=== PATIENT | male | born 1960 | race Caucasian/White ===

== ENCOUNTER → 2017-01-18 | Outpatient (CLI) | payer OTHER ==
[~2017-01-18] MED LIST: ASPI81TA28 PO; GLUCTAB18 PO; MECL1TAB42 PO; OMEG10007 PO; SIMV20TA5 PO; VITACAP26 PO
--- NOTE | 2017-01-18 16:14 | DIAGNOSTIC IMAGING REPORT ---
LEFT FOOT MIN 3 VIEWS ROUTINE CLINICAL HISTORY: ACUTE FOOT PAIN pain COMPARISON: None. DISCUSSION: The bones and joint spaces appear intact. There is no evidence of fracture, dislocation or bony disease. There is no evidence for soft tissue swelling. Very small heel spur. IMPRESSION: Very small heel spur. Otherwise negative study. The above report was generated using voice recognition software. It may contain grammatical, syntax or spelling errors. Electronically signed by: Francisco Singh M.D. 01/18/2017 4:13 PM Dictated Date/Time: 01/18/2017 4:12 PM
== END | disposition home or self-care (01) ==
LOC: C.RAD1850 15:36
PROVIDERS: ATTEND Physician Assistant
DX: M79.672 Pain in left foot (principal)

== ENCOUNTER 2020-01-23 13:23 | Observation (INO) ==
[2020-01-23] MEDS ORDERED: SODIUM CHLORIDE 0.9% 500 ML IV ONE (14:04)
--- NOTE | 2020-01-23 14:15 | Emergency Department Note ---
Impression & Plan Cellulitis of right hand, Failure of outpatient treatment ED Provider Note CHIEF COMPLAINT: Right hand/wrist infection HISTORY OF PRESENTING ILLNESS: This is a 59-year-old male who presents to the emergency department by private vehicle with complaint of right hand and wrist infection that has been ongoing for the past 9 days. Patient states he saw his PCP a week ago and was started on Keflex and Bactrim and was also given a steroid. He states the swelling initially got much better, but yesterday he started getting more swelling and redness and pain especially over the wrist area. He states the pain started to increase today as well, he notes it as an ache and throb and rates the pain 5/10. He has taken Tylenol for the pain with some relief. He spoke with his PCP today who told him to come in for IV antibiotics. He denies any fevers or chills. He denies any numbness/tingling or weakness in the hand or fingers. He notes that he had some scratches on his hand from work which is what he believes started the infection. He is not diabetic. He denies any history of previous infections or abscesses. He is right-hand dominant. He denies taking any blood thinner medications. He denies any other symptoms of chest pain, shortness of breath, dizziness or syncope, nausea, vomiting, loss of appetite, or unusual rash. REVIEW OF SYSTEMS: A complete 10 point review of systems was reviewed with the patient with pertinent positives and negatives as per history of present i llness. All else were negative. PAST MEDICAL HISTORY: Hyperlipidemia, obstructive sleep apnea, obesity SOCIAL HISTORY: Lives at home, he denies tobacco use ALLERGIES: No known allergies PHYSICAL EXAM: CONSTITUTIONAL: Pleasant and cooperative. Nontoxic-appearing and in no acute distress. Well appearing and well nourished. HEENT: Normocephalic, atraumatic. NECK: Supple, full active range of motion without discomfort. RESPIRATORY: Clear to auscultation bilaterally with no wheezing, crackles, rhonchi or stridor. Equal expansion bilaterally. CARDIOVASCULAR: Regular rate and rhythm with no murmurs, rubs or gallops. Normal peripheral perfusion. No edema. GASTROINTESTINAL: Soft, nontender, nondistended, obese abdomen. Bowel sounds present in all quadrants. MUSCULOSKELETAL: There is moderate swelling over the dorsal aspect of the right hand and wrist, erythematous and warm to the touch. There is an area of raised swelling over top of the dorsal wrist which feels fluctuant. Full range of motion of the fingers and wrist, no significant pain with flexion or extension of the fingers or wrist. No swelling noted in the fingers. Full range of motion of the elbow and shoulder. INTEGUMENTARY: No rash or other significant dermatologic conditions noted. NEUROLOGIC: Alert and oriented X 4 with normal affect. Normal strength and sensation in all facilities. Normal speech. Normal gait observed. ED COURSE AND MEDICAL DECISION MAKING: CC: Patient presenting with complaint of right hand infection DIFFERENTIAL DIAGNOSIS: Includes, but not limited to cellulitis, abscess, tenosynovitis, osteomyelitis, contusion, hematoma, failed outpatient treatment, among others. INTERPRETATION OF LABS: No leukocytosis, no anemia, normal platelets, no significant electrolyte abnormalities, mildly elevated BUN with normal creatinine, normal liver enzymes. IMAGING: XR hand RT min 3V routine, XR wrist RT min 3V routine CLINICAL HISTORY: Right hand and wrist swelling. Cellulitis. COMPARISON STUDY: None. FINDINGS: Dorsal soft tissue swelling within the hand and wrist. No subcutaneous gas or radiopaque foreign bodies identified. No underlying bony erosions to suggest osteomyelitis. No fracture or dislocation. IMPRESSION: Dorsal soft tissue swelling within the right hand and wrist. No underlying bony abnormality. ----- RIGHT HAND AND WRIST ULTRASOUND CLINICAL HISTORY: right hand/wrist infection, eval abscess COMPARISON STUDY: Right hand and wrist radiographs performed earlier today. TECHNIQUE: Sonography of the right hand and wrist was performed. FINDINGS: Sonography of the dorsal aspect of the right hand and wrist demonstrated soft tissue swelling. No fluid collection is identified to suggest an abscess. Visualized vessels were patent. IMPRESSION: 1. No abscess identified within the right hand or wrist by sonography. 2. Soft tissue swelling of the dorsal right wrist which may reflect cellulitis or edema. MEDICATION RECONCILIATION: I attest that I have personally reviewed the patient's current medication list. INITIAL VITAL SIGNS REVIEW: I reviewed the patient's initial vital signs and interpret them as follows: T: Afebrile; BP: Normotensive; HR: Within normal limits; RR: Within normal limits; Pulse Ox: Within normal limits on room air. Blood pressure screening: The patient was found to have normal blood pressure on screening and does not require follow-up for repeat blood pressure check. MDM SUMMARY: Patient was evaluated at bedside, history and physical exam performed. Patient is alert and oriented, no acute distress, resting calmly in stretcher. He is afebrile and nontoxic-appearing. Note is made of redness, swelling, and w armth over the dorsum of the right hand and wrist which appears consistent with cellulitis. Patient has been taking Keflex and Bactrim for several days, initially seemed to be improving, but now the infection seems to be getting worse again. Orders were placed at bedside for labs, IV fluid bolus for hydration as precaution, x-rays of the wrist and hand and ultrasound of the extremity to evaluate for infection. The patient was offered something for pain, he declines at this time. Patient discussed with Dr. Ma, who agrees with my assessment, plan, and disposition. Labs and imaging reviewed as above, labs are fairly unremarkable, no leukocytosis. X-ray imaging does not show any underlying bony abnormality or findings suggestive of osteomyelitis. Ultrasound shows soft tissue swelling without any evidence of fluid collection/abscess. Given the progressive worsening symptoms while the patient has been on antibiotics, I feel that he has failed outpatient therapy. I did feel the patie nt warranted admission for IV antibiotics. I discussed with [facility] ED pharmacist, she recommended IV ceftriaxone and daptomycin, which were ordered. I spoke on the phone with Dr. Noonan, hospitalist, who agrees to evaluate the patient for the admission. Patient reassessed multiple times throughout ED stay, he has remained hemodynamically stable and afebrile, and his pain is adequately controlled. Patient was updated on all results and plan for admission,, he was agreeable to this plan. All questions were answered to the best of my ability at this time. The patient was stable at time of admission. The chart was completed utilizing [employer] Speech voice recognition software. Grammatical errors, random word insertions, pronoun errors, and incomplete sentences are an occasional consequence of this system due to software limitations, ambient noise, and hardware issues. Any formal questions or concerns about the content, text, or information contained within the body of this dictation should be directly addressed to the nurse practitioner for clarification. Past Med/Surg History Medical History (Updated 01/23/20 @ 22:28 by DARLENE Irvin) Obesity AKBAR (obstructive sleep apnea) Pre-diabetes Surgical History History of cardiac catheterization Hx of knee surgery Family History Father Heart disease Mother Alzheimer disease Parkinsons disease Brother Throat cancer Sister COPD (chronic obstructive pulmonary disease) Denies family history of Prostate cancer Myocardial infarction Breast cancer Colorectal cancer Social History Smoking Status: Never smoker Do You Dip or Chew Tobacco: No; Hx Alcohol Use: Yes Alcohol type: beer Alcohol Intake Frequency Comment: Six beers per week Hx Substance Use: No Preferred Language: Bruneian Communication Ability: Effective Risk Management Director Required: No Beliefs That Will Affect Care: None marital status: Current Living Situation: Spouse current occupational status: employed Other Information That Helps Us Care for You: No Feels Safe at Home: Yes Safety Concerns: Feels Safe At This Time caffeine: Yes Dental Care, Regularly: Yes Physical Activity Frequency: Does not Exercise Seatbelt Use: always Allergies Allergies Allergy/AdvReac Type Severity Reaction Status Date / Time atorvastatin [From Lipitor] AdvReac Unknown Verified 01/23/20 16:07 Home Meds Home Medications Medication Instructions Recorded Confirmed glucosamine [id number] 2 tab PO DAILY 05/30/19 01/23/20 sobeida 1,500 mg-400 unit-100 mg tablet omega 4-itb-doy-fish oil 300 1 cap PO DAILY 05/30/19 01/23/20 mg-1,000 mg capsule ibuprofen 600 mg PO Q6H PRN 01/23/20 01/23/20 Previous Rx's Medication Instructions Recorded CPAP Machine #1 ea 09/20/19 cephalexin 500 mg capsule 500 mg PO BID #14 cap 01/17/20 prednisone 50 mg tablet 50 mg PO DAILY #5 tab 01/17/20 sulfamethoxazole 800 1 tab PO BID 7 Days #14 tab 01/17/20 mg-trimethoprim 160 mg tablet Results & Data (ED) Vital Signs Vital Signs - 24 hr 01/23/20 13:28 01/23/20 14:36 Temperature 36.8 C Temperature Source Oral Pulse Rate 83 Pulse Rate [Apical] 74 Respiratory Rate 20 18 Respiratory Effort / Characteristics Non-Labored Spontaneous Respiratory Depth Normal Blood Pressure 120/66 Blood Pressure [Left Arm] 124/55 L Blood Pressure Mean 84 Blood Pressure Mean [Left Arm] 78 Pulse Oximetry 95 97 Oxygen Delivery Method Room Air Room Air Sepsis Recent Fever Within 48 Hours No Sepsis New/Unexplained Change in Mental Status N/A Sepsis Action Taken by Nursing No Action Required Laboratory Data Result diagrams: 01/23/20 14:31 01/23/20 14:31 Lab Results 01/23/20 01/23/20 Range/Units 14:31 14:31 WBC 7.67 (4.8-10.8) K/uL RBC 5.05 (4.7-6.1) M/uL Hgb 14.5 (14.0-18.0) g/dL Hct 43.3 (42-52) % MCV 85.7 (80-100) fL MCH 28.7 (25-34) pg MCHC 33.5 (32-36) g/dL RDW Std Deviation 44.1 (36.4-46.3) fL RDW Coeff of Rosaura 14.1 (11.5-14.5) % Plt Count 257 (130-400) K/uL MPV 9.1 (7.4-10.4) fL Immature Gran % (Auto) 0.4 % Neut % (Auto) 61.5 % Lymph % (Auto) 26.9 % Upton % (Auto) 8.0 % Eos % (Auto) 2.5 % Baso % (Auto) 0.7 % Neut # (Auto) 4.73 (1.4-6.5) K/uL Lymph # (Auto) 2.06 (1.2-3.4) K/uL Upton # (Auto) 0.61 H (0.11-0.59) K/uL Eos # (Auto) 0.19 (0-0.5) K/uL Baso # (Auto) 0.05 (0-0.2) K/uL Immature Gran # (Auto) 0.03 H (0.00-0.02) K/uL Sodium 137 (136-145) mmol/L Potassium 4.1 (3.5-5.1) mmol/L Chloride 106 (98-107) mmol/L Carbon Dioxide 24 (21-32) mmol/L Anion Gap 7.0 (3-11) BUN 23 H (7-18) mg/dl Creatinine 1.31 (0.6-1.4) mg/dl Est Cr Clr Drug Dosing Not Reportable Est GFR ( Amer) 68.1 Est GFR (Non-Af Amer) 58.8 BUN/Creatinine Ratio 17.3 (10-20) Glucose 111 H (70-99) mg/dl Calcium 8.8 (8.5-10.1) mg/dl Total Bilirubin 0.3 (0.2-1) mg/dl AST 21 (15-37) U/L ALT 37 (12-78) U/L Alkaline Phosphatase 84 (45-117) U/L Total Protein 7.0 (6.4-8.2) gm/dl Albumin 3.1 L (3.4-5.0) gm/dl Globulin 3.9 (2.5-4.0) gm/dl Albumin/Globulin Ratio 0.8 L (0.9-2) Administered Medications Discontinued Medications Sodium Chloride (Nss) 500 mls @ 999 mls/hr IV .Q31M ONE Stop: 01/23/20 14:34 Last Infusion: 01/23/20 15:59 Dose: 0 mls/hr Documented by: [id number] Admin: 01/23/20 14:33 Dose: 999 mls/hr Documented by: [id number] Daptomycin 425 mg/ Syringe 8.5 mls @ 4.25 mls/min IV NOW STA; Protocol Stop: 01/23/20 15:37 Last Admin: 01/23/20 15:59 Dose: 4.25 mls/min Documented by: [id number] Ceftriaxone Sodium (Rocephin) 2,000 mg in 70 mls @ 140 mls/hr IV NOW STA Stop: 01/23/20 16:04 Last Infusion: 01/23/20 21:03 Dose: 0 mls/hr Documented by: [id number] Admin: 01/23/20 15:59 Dose: 140 mls/hr Documented by: [id number] Discharge Plan Visit Data Chief Complaint: Infection Stated Complaint: CELLULITIS IN RT HAND,NOT GETTING BETTER WITH MEDS ED Provider: Adalberto Ma ED Midlevel Provider: Rachel Sánchez Discharge Problem: Cellulitis of right hand, Failure of outpatient treatment Patient Disposition: Admitted As Inpatient Condition: Good Discharge Instructions Interventions: ED Discharge Assessment Last Done: 01/23/20 17:50
[2020-01-23 14:40] LABS: Basophils # (auto) 0.05 K/uL (0-0.2); Basophils % (auto) 0.7 %; Eosinophils # (auto) 0.19 K/uL (0-0.5); Eosinophils % (auto) 2.5 %; Hematocrit (blood only) 43.3 % (42-52); Hemoglobin 14.5 g/dL (14.0-18.0); Immature Granulocytes # (auto) 0.03 K/uL (0.00-0.02); Immature Granulocytes % (auto) 0.4 %; Lymphocytes # (auto) 2.06 K/uL (1.2-3.4); Lymphocytes % (auto) 26.9 %; Mean Corpuscular Hemoglobin 28.7 pg (25-34); Mean Corpuscular Hgb Conc 33.5 g/dL (32-36); Mean Corpuscular Volume 85.7 fL (80-100); Mean Platelet Volume 9.1 fL (7.4-10.4); Monocytes # (auto) 0.61 K/uL (0.11-0.59); Neutrophils # (auto) 4.73 K/uL (1.4-6.5); Neutrophils % (auto) 61.5 %; Platelet Count 257 K/uL (130-400); RDW Coefficient of Variation 14.1 % (11.5-14.5); RDW Standard Deviation 44.1 fL (36.4-46.3); Red Blood Count 5.05 M/uL (4.7-6.1); White Blood Count 7.67 K/uL (4.8-10.8)
--- NOTE | 2020-01-23 14:55 | XRay Report ---
XR hand RT min 3V routine, XR wrist RT min 3V routine CLINICAL HISTORY: Right hand and wrist swelling. Cellulitis. COMPARISON STUDY: None. FINDINGS: Dorsal soft tissue swelling within the hand and wrist. No subcutaneous gas or radiopaque fo reign bodies identified. No underlying bony erosions to suggest osteomyelitis. No fracture or disloca tion. IMPRESSION: Dorsal soft tissue swelling within the right hand and wrist. No underlying bony abnormal ity. ACT 112: Negative or not required by law. Electronically signed by: Dylan Arellano M.D. 01/23/2020 2:54 PM
[2020-01-23 15:03] LABS: Alanine Aminotransferase 37 U/L (12-78); Albumin Level 3.1 gm/dl (3.4-5.0); Aspartate Aminotransferase 21 U/L (15-37); BUN Creatinine Ratio 17.3 (10-20); Blood Urea Nitrogen 23 mg/dl (7-18); Calcium 8.8 mg/dl (8.5-10.1); Carbon Dioxide 24 mmol/L (21-32); Chloride 106 mmol/L (98-107); Est GFR (African American) 68.1; Est GFR (Non-African American) 58.8; Glucose 111 mg/dl (70-99); Potassium 4.1 mmol/L (3.5-5.1); Sodium 137 mmol/L (136-145)
[2020-01-23 15:06] LABS: Albumin Globulin Ratio 0.8 (0.9-2); Alkaline Phosphatase 84 U/L (45-117); Bilirubin,Total 0.3 mg/dl (0.2-1); Globulin 3.9 gm/dl (2.5-4.0)
--- NOTE | 2020-01-23 15:18 | Ultrasound Report ---
RIGHT HAND AND WRIST ULTRASOUND CLINICAL HISTORY: right hand/wrist infection, eval abscess COMPARISON STUDY: Right hand and wrist radiographs performed earlier today. TECHNIQUE: Sonography of the right hand and wrist was performed. FINDINGS: Sonography of the dorsal aspect of the right hand and wrist demonstrated soft tissue swelli ng. No fluid collection is identified to suggest an abscess. Visualized vessels were patent. IMPRESSION: 1. No abscess identified within the right hand or wrist by sonography. 2. Soft tissue swelling of the dorsal right wrist which may reflect cellulitis or edema. ACT 112: Negative or not required by law. Electronically signed by: Adria Sandoval M.D. 01/23/2020 3:16 PM
[2020-01-23] MEDS ORDERED: cefTRIAXone SODIUM 2,000 MG/70 ML BAG IV STA (15:35)
[2020-01-23] MEDS ORDERED: DAPTOmycin 425 MG in SYRINGE 0 ML IV STA (15:36)
[2020-01-23] MEDS ORDERED: ONDANSETRON INJ 2 MG/ML 2 ML VIAL IV PRN (16:01)
[2020-01-23] MEDS ORDERED: POLYETHYLENE (MIRALAX) 17 GM PACK PO PRN (16:01)
[2020-01-23] MEDS ORDERED: DAPTOMYCIN CONSULT ACTIVE PRN (16:55)
--- NOTE | 2020-01-23 22:36 | History & Physical Report ---
Date of Service January 23, 2020 Assessment & Plan (1) Cellulitis of right hand: will admit to med/surg Place on IV antibiotics. will monitor likely for 2 days. Unsure if cultures were obtained prior to IV antibiotics. (2) Back pain: This is chronic, will monitor (3) Obesity: BMI is elevated at 43, recommend life style modifications (4) AKBAR (obstructive sleep apnea): ORDERED CPAP (5) Hyperlipidemia: Does not appear to be ion stain, may require FLP at discharge dvt: patient may ambulate. Admission and Anticipated Discharge Date Admission Date: January 23, 2020 History of Present Illness Chief Complaint: right hand swelling Primary Care Provider: Lizzeth Conklin MD This is a pleasant 59 yo male who comes in to the ED with Right hand swelling. He was treated with cellulitis in the past week with kephlex and bactrim. His swelling improved but returned once his antibiotics stopped. Patient also received prednisone for his back pain during time of treatment for cellulitis His doctor told him to go to the ER for IV antibiotics Allergies Allergy/AdvReac Type Severity Reaction Status Date / Time atorvastatin [From Lipitor] AdvReac Unknown Verified 01/23/20 16:07 Home Medications Home Medications Medication Instructions Recorded Confirmed Type glucosamine [id number] 2 tab PO DAILY 05/30/19 01/23/20 History sobeida 1,500 mg-400 unit-100 mg tablet omega 9-kjw-owj-fish oil 300 1 cap PO DAILY 05/30/19 01/23/20 History mg-1,000 mg capsule CPAP Machine #1 ea 09/20/19 01/17/20 Rx cephalexin 500 mg capsule 500 mg PO BID #14 cap 01/17/20 01/23/20 Rx prednisone 50 mg tablet 50 mg PO DAILY #5 tab 01/17/20 01/23/20 Rx sulfamethoxazole 800 1 tab PO BID 7 Days #14 tab 01/17/20 01/23/20 Rx mg-trimethoprim 160 mg tablet ibuprofen 600 mg PO Q6H PRN 01/23/20 01/23/20 History Past Med/Surg History Medical History Obesity AKBAR (obstructive sleep apnea) Pre-diabetes Surgical History History of cardiac catheterization Hx of knee surgery Family History Father Heart disease Mother Alzheimer disease Parkinsons disease Brother Throat cancer Sister COPD (chronic obstructive pulmonary disease) Denies family history of Prostate cancer Myocardial infarction Breast cancer Colorectal cancer Social History Smoking Status: Never smoker Do You Dip or Chew Tobacco: No; Hx Alcohol Use: Yes Alcohol type: beer Alcohol Intake Frequency Comment: Six beers per week Hx Substance Use: No Preferred Language: Citizen Of [place] Communication Ability: Effective Salvage Machine Operator Required: No Beliefs That Will Affect Care: None marital status: Current Living Situation: Spouse current occupational status: employed Other Information That Helps Us Care for You: No Feels Safe at Home: Yes Safety Concerns: Feels Safe At This Time caffeine: Yes Dental Care, Regularly: Yes Physical Activity Frequency: Does not Exercise Seatbelt Use: always Review of Systems Constitutional: no sweats and no malaise Eyes: no diplopia Ear, Nose, Mouth, Throat: no ear pain and no ear trauma Respiratory: no change in sputum Cardiovascular: no chest pain with activity and no dyspnea at rest Gastrointestinal: no abdominal pain Genitourinary: no urinary frequency and no post-void dribbling Musculoskeletal: no radicular pain and no deformity Integumentary: no acne and no skin ulcer Neurologic: no falls Psychiatric: no behavioral changes Endocrine: no fatigue Hematologic / Lymphatic: no coagulopathy Physical Exam Constitutional: WD/WN, vitals as above Eyes: PERRL, conjunctivae normal, anicteric sclerae ENMT: external ear and nose normal, oropharynx normal Neck: trachea midline, no thyromegaly Respiratory: normal respiratory effort, lungs clear to auscultation Cardiovascular: RRR, no murmur, no edema Musculoskeletal: right hand swelling in the dorsum of the hand near the wrist, mild erythema noted, TTP Skin: Trauma: no evidence of skin trauma Neurologic: patellar DTR's 2+ bilat, sensation intact Psychiatric: A+Ox3, euthymic affect Genitourinary: no testicular masses, no penis abnormality Results & Data Results & Data ([facility]) Vital Signs (Past 12 Hours) Vital Signs Temp Pulse Pulse Resp BP BP Pulse Ox 01/23/20 18:15 36.6 C 67 18 133/83 97 01/23/20 17:50 78 16 130/85 95 01/23/20 16:00 64 16 134/72 98 01/23/20 14:36 74 18 124/55 L 97 01/23/20 13:28 36.8 C 83 20 120/66 95 PG Care Time/CCT Total # of Minutes Spent Total Time Spent with Patient: Total time spent is greater than 50% in coordination of care (as documented) at patient's floor/unit and/or counseling patient: Coding Level of Care Code 35988 Initial Inpt Care Lvl 3 Diagnoses Cellulitis of right hand L03.113 Back pain M54.9 Obesity E66.9 AKBAR (obstructive sleep apnea) G47.33 Hyperlipidemia E78.5
[2020-01-24 08:55] LABS: Hematocrit (blood only) 44.1 % (42-52); Hemoglobin 14.9 g/dL (14.0-18.0); Mean Corpuscular Hemoglobin 29.1 pg (25-34); Mean Corpuscular Hgb Conc 33.8 g/dL (32-36); Mean Corpuscular Volume 86.1 fL (80-100); Mean Platelet Volume 9.2 fL (7.4-10.4); Platelet Count 261 K/uL (130-400); RDW Coefficient of Variation 14.1 % (11.5-14.5); RDW Standard Deviation 44.5 fL (36.4-46.3); Red Blood Count 5.12 M/uL (4.7-6.1); White Blood Count 9.48 K/uL (4.8-10.8)
[2020-01-24] MEDS ORDERED: OMEGA-3 (PURIFIED FISH OIL) 1 GM CAP PO SCH (09:00)
[2020-01-24 09:32] LABS: BUN Creatinine Ratio 20.7 (10-20); Calcium 8.8 mg/dl (8.5-10.1); Creatinine Clr Calc Pharmacy 142.9 ml/min; Est GFR (Non-African American) 96.6; Potassium 4.2 mmol/L (3.5-5.1)
--- NOTE | 2020-01-24 10:00 | Hospitalist Progress Note ---
Date of Service January 24, 2020 Assessment & Plan (1) Cellulitis of right hand: will admit to med/surg Place on IV antibiotics. will monitor likely for 2 days. Unsure if cultures were obtained prior to IV antibiotics. (2) Back pain: This is chronic, will monitor (3) Obesity: BMI is elevated at 43, recommend life style modifications (4) KABAR (obstructive sleep apnea): ORDERED CPAP (5) Hyperlipidemia: Does not appear to be ion stain, may require FLP at discharge dvt: patient may ambulate. Admission and Anticipated Discharge Date Admission Date: January 23, 2020 Results & Data Results & Data ([facility]) Vital Signs (Past 12 Hours) Vital Signs Temp Pulse Resp BP Pulse Ox 01/24/20 07:57 36.6 C 59 L 16 120/71 96 01/23/20 23:21 36.6 C 65 16 104/64 96 Laboratory Results 01/24/20 01/24/20 01/23/20 Range/Units 08:20 08:20 14:31 WBC 9.48 (4.8-10.8) K/uL RBC 5.12 (4.7-6.1) M/uL Hgb 14.9 (14.0-18.0) g/dL Hct 44.1 (42-52) % MCV 86.1 (80-100) fL MCH 29.1 (25-34) pg MCHC 33.8 (32-36) g/dL RDW Std Deviation 44.5 (36.4-46.3) fL RDW Coeff of Rosaura 14.1 (11.5-14.5) % Plt Count 261 (130-400) K/uL MPV 9.2 (7.4-10.4) fL Immature Gran % (Auto) % Neut % (Auto) % Lymph % (Auto) % Barnes % (Auto) % Eos % (Auto) % Baso % (Auto) % Neut # (Auto) (1.4-6.5) K/uL Lymph # (Auto) (1.2-3.4) K/uL Barnes # (Auto) (0.11-0.59) K/uL Eos # (Auto) (0-0.5) K/uL Baso # (Auto) (0-0.2) K/uL Immature Gran # (Auto) (0.00-0.02) K/uL Sodium 138 137 (136-145) mmol/L Potassium 4.2 4.1 (3.5-5.1) mmol/L Chloride 108 H 106 (98-107) mmol/L Carbon Dioxide 23 24 (21-32) mmol/L Anion Gap 7.0 7.0 (3-11) BUN 17 23 H (7-18) mg/dl Creatinine 0.81 D 1.31 (0.6-1.4) mg/dl Est Cr Clr Drug Dosing 142.9 Not Reportable Est GFR ( Amer) 112.0 68.1 Est GFR (Non-Af Amer) 96.6 58.8 BUN/Creatinine Ratio 20.7 H 17.3 (10-20) Glucose 95 111 H (70-99) mg/dl Calcium 8.8 8.8 (8.5-10.1) mg/dl Total Bilirubin 0.3 (0.2-1) mg/dl AST 21 (15-37) U/L ALT 37 (12-78) U/L Alkaline Phosphatase 84 (45-117) U/L Total Protein 7.0 (6.4-8.2) gm/dl Albumin 3.1 L (3.4-5.0) gm/dl Globulin 3.9 (2.5-4.0) gm/dl Albumin/Globulin Ratio 0.8 L (0.9-2) /02/02 Range/Units 14:31 WBC 7.67 (4.8-10.8) K/uL RBC 5.05 (4.7-6.1) M/uL Hgb 14.5 (14.0-18.0) g/dL Hct 43.3 (42-52) % MCV 85.7 (80-100) fL MCH 28.7 (25-34) pg MCHC 33.5 (32-36) g/dL RDW Std Deviation 44.1 (36.4-46.3) fL RDW Coeff of Rosaura 14.1 (11.5-14.5) % Plt Count 257 (130-400) K/uL MPV 9.1 (7.4-10.4) fL Immature Gran % (Auto) 0.4 % Neut % (Auto) 61.5 % Lymph % (Auto) 26.9 % Barnes % (Auto) 8.0 % Eos % (Auto) 2.5 % Baso % (Auto) 0.7 % Neut # (Auto) 4.73 (1.4-6.5) K/uL Lymph # (Auto) 2.06 (1.2-3.4) K/uL Barnes # (Auto) 0.61 H (0.11-0.59) K/uL Eos # (Auto) 0.19 (0-0.5) K/uL Baso # (Auto) 0.05 (0-0.2) K/uL Immature Gran # (Auto) 0.03 H (0.00-0.02) K/uL Sodium (136-145) mmol/L Potassium (3.5-5.1) mmol/L Chloride (98-107) mmol/L Carbon Dioxide (21-32) mmol/L Anion Gap (3-11) BUN (7-18) mg/dl Creatinine (0.6-1.4) mg/dl Est Cr Clr Drug Dosing Est GFR ( Amer) Est GFR (Non-Af Amer) BUN/Creatinine Ratio (10-20) Glucose (70-99) mg/dl Calcium (8.5-10.1) mg/dl Total Bilirubin (0.2-1) mg/dl AST (15-37) U/L ALT (12-78) U/L Alkaline Phosphatase (45-117) U/L Total Protein (6.4-8.2) gm/dl Albumin (3.4-5.0) gm/dl Globulin (2.5-4.0) gm/dl Albumin/Globulin Ratio (0.9-2) PG Care Time/CCT Total # of Minutes Spent Total Time Spent with Patient: Total time spent is greater than 50% in coordination of care (as documented) at patient's floor/unit and/or counseling patient: Coding Diagnoses Cellulitis of right hand L03.113 Back pain M54.9 Obesity E66.9 AKBAR (obstructive sleep apnea) G47.33 Hyperlipidemia E78.5
--- NOTE | 2020-01-24 13:12 | Discharge Summary ---
Date of Service January 24, 2020 Admission HPI Per Admitting Provider This is a pleasant 59 yo male who comes in to the ED with Right hand swelling. He was treated with cellulitis in the past week with kephlex and bactrim. His swelling improved but returned once his antibiotics stopped. Patient also received prednisone for his back pain during time of treatment for cellulitis His doctor told him to go to the ER for IV antibiotics Admission Exam Per Admitting Provider Constitutional: WD/WN, vitals as above Eyes: PERRL, conjunctivae normal, anicteric sclerae ENMT: external ear and nose normal, oropharynx normal Neck: trachea midline, no thyromegaly Respiratory: normal respiratory effort, lungs clear to auscultation Cardiovascular: RRR, no murmur, no edema Musculoskeletal: right hand swelling in the dorsum of the hand near the wrist, mild erythema noted, TTP Skin: Trauma: no evidence of skin trauma Neurologic: patellar DTR's 2+ bilat, sensation intact Psychiatric: A+Ox3, euthymic affect Genitourinary: no testicular masses, no penis abnormality Principal Diagnosis Right Hand Cellulitis Discharge Exam Constitutional WD/WN, vitals as above no acute distress Eyes + anicteric sclerae and PERRL ENMT external ear and nose normal, oropharynx normal Neck normal visual inspection Respiratory normal respiratory effort, lungs clear to auscultation Cardiovascular RRR, no murmur, no edema Gastrointestinal (Abdomen) normal bowel sounds, soft, nontender, no hepatosplenomegaly Musculoskeletal left hand with minimal swelling to dorsal aspect non-tender to palpation no streaking or erythema noted full ROM NVI cap refill <2 seconds Kiran's cyst R posterior knee Skin warm, dry Neurologic patellar DTR's 2+ bilat, sensation intact Psychiatric A+Ox3, euthymic affect Lymphatic no cervical or axillary lymphadenopathy Discharge Data Allergies Allergy/AdvReac Type Severity Reaction Status Date / Time atorvastatin [From Lipitor] AdvReac Unknown Verified 01/23/20 16:07 Consultations 01/23/20 15:46 ED Decision to Admit Stat Ordered Studies 01/23/20 14:04 soft tissue ext ltd Stat XRAY L hand/wrist Hospital Course (1) Cellulitis of right hand: Failure to respond to outpatient treatment with bactrim/keflex in addition to prednisone 50mg for his back -- initially improved but then worsened with decrease ROM, increased swelling/erythema Xrays show dorsal soft tissue swelling within R hand/wrist without underlying bony abnormality ultrasound without identified abscess but did note cellulitis vs edema placed on Daptomycin/Rocephin with significant improvement in 24 hours --> given 2nd dose of both prior to discharge with doxycycline 100mg BID for total 10 days and to follow up with PCP Blood cultures drawn, NGTD after 24 hours. Patient without fever/chills and WBC 9.4k (2) Back pain: Follow up with pain management scheduled prior to d/c. Instructed to avoid prednisone until hand resolved (3) Obesity: BMI is elevated at 43 (4) AKBAR (obstructive sleep apnea): CPAP (5) Hyperlipidemia: Patient had tolerated 10mg atorvastatin in the past but when increased to 20mg he broke out in a rash and no longer interested in taking Recommended follow up lipid panel with PCP and possible initiation of something like gemfibrozil pending results. Patient agreeable to this plan Patient also with R knee OA and kiran's cyst and had previously been seen by Dr. Boothe in the past for meniscal tear repair and set up for f/u at discharge given increased pain with movement Total Time Total Time Spent Total Time Spent (In Minutes): 60 Discharge Plan Discharge Items Patient Disposition: Home - Self-Care Reason For Visit: HAND CELLULITIS Discharge Diagnosis: Right Hand Cellulitis Condition on Discharge: Good Goals: You have been hospitalized for an acute medical problem. During your stay at [facility], we have made an effort to correct the problem that brought you to the hospital while keeping you as comfortable as possible. Medications were used to bring your condition under control and your discharge instructions will include directions for any medications you should take after leaving the hospital. Please make sure you see your Primary Care Provider as part of your follow up plan. Activity: As commented below Activity Comment: advance as tolerated Non-emergency contact: Primary Care Provider Call non-emergency contact if: you have any medication questions, your symptoms worsen and your pain is concerning for you Follow-up/Referrals: Dorie Miner DO [Physician] - 02/12/20 10:45 am (low back pain) Lizzeth Conklin MD [Primary Care Provider] - 01/29/20 8:00 am Dennis Boothe MD [Physician] - 02/06/20 10:40 am (1-2 weeks -- Right knee OA and Kiran's Cyst) Diet: Regular Addtl Attending Provider Instructions: You have been hospitalized for right hand cellulitis that had previously failed outpatient treatment with Bactrim/Keflex. Blood cultures were drawn and they have been without growth, although final results will take several days. Imaging was performed that showed edema but no fluid collection/abscess. You were treated with IV antibiotics (Daptomycin and Ceftriaxone) and have received two doses and are being sent with a prescription for doxycycline. You should continue this treatment as follows: * Doxycycline 100mg by mouth TWICE daily for the next 10 days. Please drink with a full glass of water and complete full course as prescribed. Advised no further steroids until this infection is healed. You should follow up with Dr. Boothe's office for your right knee as well as Kiran's cyst. You should follow up with pain management for your low back pain as well. Please follow up with your PCP by Tuesday to monitor your progress. If you develop fever, chills, worsening swelling, redness, or reduced range of motion in your hand, please return to the emergency department. It has been a pleasure being a part of the medical team providing for you while you have been in the hospital. Take care! Pending Studies at Discharge: Yes Studies:: Blood cultures Stand-Alone Forms: My [facility], Work/School Release (Inpt) Medications and DC Order Prescriptions: New doxycycline hyclate 100 mg capsule 100 mg PO BID 10 Days Qty: 20 RF: 0 Continued [id number] serr [Osteo Bi-Flex (5-Loxin)] 1,500-400-100 mg-unit-mg tablet 2 tab PO DAILY RF: 0 omega 3-wlc-htq-fish oil [Fish Oil] 300-1,000 mg capsule 1 cap PO DAILY RF: 0 (DME) CPAP Machine Misc See Rx Instructions .ROUTE .MEDSUPPLY Qty: 1 RF: 0 ibuprofen 200 mg Tablet 600 mg PO Q6H PRN (Reason: Pain) RF: 0 Discontinued prednisone 50 mg tablet 50 mg PO DAILY Qty: 5 RF: 0 sulfamethoxazole-trimethoprim [Bactrim DS] 800-160 mg tablet 1 tab PO BID 7 Days Qty: 14 RF: 0 cephalexin [Keflex] 500 mg capsule 500 mg PO BID Qty: 14 RF: 0 Discharge Orders: Discharge Order (Routine); Ordered 01/24/20 Ordered By: Leela Venegas/Other Patient Handouts: Discharge Instructions for Cellulitis Admission Data Admit Date/Time: 01/23/20 16:00 Attending Provider: James Aranda Admit Provider: Davy Noonan Primary Care Provider: Lizzeth Conklin Other Providers: Davy Noonan Other Interventions: Discharge Summary Assessment (RN) Last Done: 01/24/20 14:47 Coding Level of Care Code D/C Day Management >30 mins Diagnoses Cellulitis of right hand L03.113 Back pain M54.9 Obesity E66.9 AKBAR (obstructive sleep apnea) G47.33 Hyperlipidemia E78.5
[2020-01-24] MEDS ORDERED: DAPTOmycin 425 MG in SYRINGE 0 ML IV SCH ×2 (14:15→16:00)
[2020-01-24] MEDS ORDERED: cefTRIAXone SODIUM 2,000 MG in DEXTROSE 5% 50 ML IV SCH ×2 (14:15→15:30)
== END 2020-01-24 15:58 | disposition home or self-care (01) ==
LOC: ED 13:23 → 3W 16:00 → SUATTDRO 16:00 → INTOOBSV 16:00 → 3W 17:50

== ENCOUNTER 2022-12-10 05:05 | Observation (INO) ==
--- NOTE | 2022-11-09 10:22 | PAT Medication Instructions ---
Medication Instructions Date of Service November 09, 2022 Home Medications Medication Instructions Recorded CPAP Machine #1 ea 09/20/19 celecoxib 200 mg capsule (Celebrex) 200 mg PO BID PRN pain #60 caps 10/21/22 glucosamine [id number] sobeida 1,500 mg-400 unit-100 mg tablet (Osteo Bi- Flex (5-Loxin)) 2 tab PO QAM omega 9-cor-ldj-fish oil 300 mg-1,000 mg capsule (Fish Oil) 1 cap PO DAILY ibuprofen 200 mg tablet 600 mg PO Q6H PRN Pain ascorbate calcium (vitamin C) 500 mg tablet 500 mg PO DAILY cholecalciferol (vitamin D3) 50 mcg (2,000 unit) capsule (Vitamin D3) 20,000 mcg PO WK diclofenac sodium 1 % topical gel 4 g topical QID PRN Pain celecoxib 200 mg capsule (Celebrex) 200 mg PO BID PRN pain multivitamin 1 tab PO QAM Continue as directed cholecalciferol (vitamin D3) 50 mcg (2,000 unit) capsule (Vitamin D3) 20,000 mcg PO WK (just do not take on morning of surgery) ASK your surgeon for instructions ibuprofen 200 mg tablet 600 mg PO Q6H PRN Pain celecoxib 200 mg capsule (Celebrex) 200 mg PO BID PRN pain diclofenac sodium 1 % topical gel 4 g topical QID PRN Pain STOP taking 2 weeks before surgery glucosamine FGn-H6-Gqlvljuvk sobeida 1,500 mg-400 unit-100 mg tablet (Osteo Bi- Flex (5-Loxin)) 2 tab PO QAM omega 6-zvw-vja-fish oil 300 mg-1,000 mg capsule (Fish Oil) 1 cap PO DAILY DO NOT take the morning of surgery ascorbate calcium (vitamin C) 500 mg tablet 500 mg PO DAILY multivitamin 1 tab PO QAM OTHERWISE NOTHING TO EAT OR DRINK AFTER MIDNIGHT Other Notes If you have any questions please call us at [phone] or [phone] or [phone] or [phone]
--- NOTE | 2022-11-17 09:20 | Anesthesiology Consultation ---
Date of Service November 17, 2022 Assessment & Plan (1) Encounter for pre-operative examination: Chart Review Chart Review: Acceptable Risk for Surgery and Patient seen in Pre Admission Testing Pt currently scheduled as 23 hours observation. If surgeon decides to change patient to Same Day Joint, patient would be acceptable risk for TKA, pending patient is motivated, has good support and surgeon's office completes Same Day Joint Program preop requirements. Per PAT appt on 11/17/22, patient denies any recent travel or large group activities. Pt is vaccinated for Covid. Will leave to surgeon's discretion if preop Covid testing needed. Educated on importance of using Covid precautions one week prior to surgery Right shoulder arthroscopy, RCR at [facility] 09/28/21= Done under GA with Grade 2 view with MAC #4. ETT #8.0 Teaching & Discussion Pre-Anesthesia Teaching/Discussion Notes: Instructed NPO after midnight before surgery,except medications with 15 cc of water. Medication instructions provided according to the PAT guidelines. History Surgery Operation Date: 12/10/22 12:40 Proposed Procedures p Left Total Knee Arthroplasty - Panchito Goldman DO Height/Weight Height: 6 ft Weight: 150.2 kg Allergies Allergy/AdvReac Type Severity Reaction Status Date / Time atorvastatin [From Lipitor] Allergy Unknown Rash Verified 11/05/22 08:28 Medications Home Medications Medication Instructions Recorded Confirmed Last Taken glucosamine KAs-F3-Iovmezwsn 2 tab PO QAM 05/30/19 11/05/22 09/25/21 sobeida 1,500 mg-400 unit-100 mg tablet (Osteo Bi-Flex (5-Loxin)) omega 5-ndu-via-fish oil 300 1 cap PO DAILY 05/30/19 11/05/22 09/25/21 mg-1,000 mg capsule (Fish Oil) CPAP Machine #1 ea 09/20/19 06/23/22 Unknown ibuprofen 200 mg tablet 600 mg PO Q6H PRN Pain 01/23/20 11/05/22 09/25/21 ascorbate calcium (vitamin C) 500 500 mg PO DAILY 02/12/20 11/05/22 09/25/21 mg tablet cholecalciferol (vitamin D3) 50 20,000 mcg PO WK 09/07/21 11/05/22 09/25/21 mcg (2,000 unit) capsule (Vitamin D3) diclofenac sodium 1 % topical gel 4 g topical QID PRN Pain 09/07/21 11/05/22 09/25/21 celecoxib 200 mg capsule (Celebrex) 200 mg PO BID PRN pain #60 caps 10/21/22 11/05/22 Unknown multivitamin 1 tab PO QAM 11/05/22 11/05/22 Unknown Past Medical History Medical History BPH (benign prostatic hyperplasia) COVID-19 12/2020 > resolved Fatty liver Hyperlipidemia no meds Morbid obesity AKBAR (obstructive sleep apnea) CPAP (fair compliance) Osteoarthritis Pre-diabetes Diet controlled Exercise / Class Metabolic Activity II 4-5 Yardwork/Stairs/Walk up hill (one flight of stairs - no chest pain or SOB - uses walking stick for support) Past Family History Family History Father Heart disease Mother Alzheimer disease Parkinsons disease Brother Throat cancer Sister COPD (chronic obstructive pulmonary disease) Denies family history of Prostate cancer Myocardial infarction Breast cancer Colorectal cancer Past Surgical History Surgical History History of cardiac catheterization 2013 (due to abnormal EKG/CP) > no stents History of colonoscopy History of tooth extraction Hx of eye surgery Hx of knee surgery right knee arthroscopic Past Anesthesia History No Hx of Anesthesia Complications and No Family Hx of Anesthesia Complications History of PONV No Hx of PONV and No Hx of Motion Sickness Social History Smoking Status: Never smoker Do You Dip or Chew Tobacco: No Hx Alcohol Use: Yes Alcohol type: beer alcohol intake frequency: 0-2 drinks per day (1-4 beers/day) Hx Substance Use: No substance use type: does not use Review of Systems Patient denies chest pain, shortness of breath, dyspnea on exertion, reflux, cough, wheezing, palpitations. No hx of seizures, stroke, [place]. No hx of blood clots or blood transfusions Physical Exam Vital Signs VITALS BP 143/78 P 72 TEMP 97.8 SP02 94% RESP 16 Constitutional no acute distress ENMT Mouth: no TMJ clicking Thyromental Distance: > or= 3.5 Finger Breadths (4.0) Mallampati Class: II Chipped left molar Neck + short neck, + thick neck and + limited neck extension Respiratory normal respiratory effort; no respiratory distress Auscultation: lungs clear to auscultation bilaterally; no wheezes Cardiovascular Rate/Rhythm: regular rate and regular rhythm Heart Sounds: no murmur Vessels: no carotid bruit Musculoskeletal Spine: no pain with cervical ROM Extremities: extremities normal to inspection Psychiatric Orientation: alert Lab Results Anesthesia Preop Results Results Anesthesia Widget: WBC 8.93 K/ul (4.8-10.8) 11/17/22 Hgb 14.9 g/dl (14.0-18.0) 11/17/22 Hct 44.9 % (42.0-52.0) 11/17/22 Plt 280 K/uL (130-400) 11/17/22 Na 138 mmol/L (136-145) 11/17/22 K 4.4 mmol/L (3.5-5.1) 11/17/22 Cl 107 mmol/L (98-107) 11/17/22 CO2 23 mmol/L (21-32) 11/17/22 BUN 22 mg/dl (6-23) 11/17/22 Creat 0.77 mg/dl (0.6-1.4) 11/17/22 Glucose Level 84 mg/dl (70-99(Fasting)) 11/17/22 PT 10.9 Seconds (9.0-12.0) 11/17/22 PTT 30.0 Seconds (21.0-31.0) 11/17/22 INR 1.0 (0.9-1.1) 11/17/22 HA1c 5.5 % (4.5-5.6) 11/17/22 Blood Type O Positive 11/17/22 Antibody Screen NEGATIVE 11/17/22 Testing Electrocardiogram Date: 11/17/22 Findings: + NSR @ (65bpm) Normal EKG per cardio Chest X-Ray Date: 11/17/22 Findings: + NAD Other Testing Carotid doppler 03/23/22= No hemodynamically significant stenosis seen within the bilateral common or internal carotid arteries. Antegrade flow is seen in the bilateral vertebral arteries. COVID-19 Risk Screen Screening Information COVID-19 Screen Date: 11/17/22 Exposure 21 Days Family/Household +COVID Last 21 Days: No Exposure 10 Days Any COVID Exposure Last 10 Days: No Symptoms Last 10 Days Experienced COVID Sx Last 10 Days: No + COVID 0-90 Days COVID + in Last 0-90 Days: No Risk Plan COVID Risk Plan: No Risk Identified Patient Education COVID Preop Screening Education Complete: Yes
[~2022-12-10 05:05] MED LIST changes: -ASPI81TA28 PO; -GLUCTAB18 PO; +LIDOCAINE 2% 2 ML VIAL/AMP(20MG/ML) INFIL ONE; -MECL1TAB42 PO; -OMEG10007 PO; -SIMV20TA5 PO; -VITACAP26 PO
[2022-12-10] MEDS ORDERED: TRANEXAMIC ACID 1,000 MG **IV Intra-op IV SCH (06:00)
[2022-12-10] MEDS ORDERED: ORTHO JOINT MIX INFIL SCH (06:00)
[2022-12-10] MEDS ORDERED: TRANEXAMIC ACID 1,000 MG **IV Pre-op IV SCH (06:00)
[2022-12-10] MEDS ORDERED: GABAPENTIN 600 MG DOSE PO SCH (06:00)
[2022-12-10] MEDS ORDERED: LR 500ML BOLUS, THEN 15ML/HR IV SCH (06:00)
[2022-12-10] MEDS ORDERED: LR 60ML/HR IV SCH (06:00)
[2022-12-10] MEDS ORDERED: dexAMETHasone 4 MG TAB PO SCH (06:00)
[2022-12-10] MEDS ORDERED: ACETAMINOPHEN 500 MG TAB PO SCH (06:00)
[2022-12-10] MEDS ORDERED: FAMOTIDINE 20 MG TAB PO SCH (06:00)
[2022-12-10] MEDS ORDERED: ROPIVACAINE 0.5% 5 MG/ML 30 ML VIAL ONE (06:07)
[2022-12-10] MEDS ORDERED: BUPIVACAINE 0.5 % 5 MG/1 ML PF 10ML VIAL ONE (06:08)
[2022-12-10] MEDS ORDERED: ONDANSETRON INJ 2 MG/ML 2 ML VIAL IV PRN ×2 (06:30→10:40)
[2022-12-10] MEDS ORDERED: ATROPINE SULFATE 0.1 MG/ML 10ML SYR IV PRN (06:30)
[2022-12-10] MEDS ORDERED: ePHEDrine sulfate 50 MG/ML AMP IV PRN (06:30)
[2022-12-10] MEDS ORDERED: fentaNYL citrate PF 100 MCG/2 ML VIAL IV PRN (06:30)
[2022-12-10] MEDS ORDERED: MIDAZOLAM HCL 1 MG/ML 2ML VIAL ONE (06:35)
[2022-12-10] MEDS ORDERED: fentaNYL citrate PF 100 MCG/2 ML VIAL ONE (06:35)
--- NOTE | 2022-12-10 06:42 | History & Physical Bridge Note ---
Date of Service December 10, 2022 History & Physical Bridge Note I have examined the patient, reviewed the History & Physical and in the interval since the performance of the History & Physical I have noted the following changes of clinical significance: We will be proceeding with a left total knee arthroplasty.
[2022-12-10] MEDS ORDERED: ORTHO JOINT ANESTHETIC ONE (06:43)
[2022-12-10] MEDS ORDERED: DexMEDEtomidine HCL IV 100 MCG/ML VIAL IV ONE (06:59)
[2022-12-10] MEDS ORDERED: KETAMINE 50 MG/5 ML SYRINGE ONE (07:04)
[2022-12-10] MEDS ORDERED: PROPOFOL IV EMULSION 10 MG/ML 20 ML VIAL IV ONE (07:20)
[2022-12-10] MEDS ORDERED: ONDANSETRON INJ 2 MG/ML 2 ML VIAL ONE (07:20)
--- NOTE | 2022-12-10 08:21 | Operative Report ---
PG Post Operative Report Pre & Post Diagnosis Operation Date: 12/10/22 07:00 Pre-Op Diagnosis: Left Knee Degenerative Joint Disease Post-Op Diagnosis: Left Knee Degenerative Joint Disease I identified the patient and participated in the time-out.: Yes Procedure Operation Date: 12/10/22 07:00 Actual Procedures p Left Total Knee Arthroplasty(Left) - Panchito Goldman DO Surgeon Panchito Goldman DO Staple Shear Operator Panchito Mercado PA-C Estimated Blood Loss 30 Findings Consistent with Post-Op Diagnosis Specimens Left femoral tibial bone Description of Procedure Implants used: I used a Corby Persona total knee arthroplasty system with a size 11 standard PS femur, G tibia, 34 oval patella, and a size 12 CPS polyethylene bearing. All components were cemented in place with Biomet cement. Panchito arrived [facility] for the above procedure. He was seen in the preoperative holding area and the operative extremity was identified and signed. He was given a preoperative antibiotic, TXA, a spinal anesthetic and an adductor nerve block. He was taken back to the operating room and laid on the table in supine position. He was given basic sedation. The operative knee was then prepped and draped in sterile fashion. A timeout was done, and the patient and the operative extremity was properly identified. A midline incision was made directly over the patella. Dissection was taken down to the extensor mechanism. A midvastus arthrotomy was used. The medial retinaculum was released and the fat pad was mostly excised. The knee was flexed and the ACL, PCL, and meniscus were removed. A drill was sent down the center of the femoral canal followed by an intramedullary charan. Off that charan a distal femoral cutting block was placed. 9 mm was resected off the distal femur at 5 of valgus. A posterior referencing AP sizing guide was then placed on the distal femur. The femur measured to be a size 11. 2 drill holes were placed in 3 of external rotation. A 4-in-1 cutting block was then impacted into place. Anterior, posterior, and chamfer cuts were then made. The proximal tibia was then exposed. An external tibial alignment guide was placed. A tibial cut guide was then anchored in place and the proximal tibia was then resected. The posterior aspect of the knee was then opened up and any additional meniscus fragments and osteophytes were removed. The tibia measured to be a size G. The tibial plate was then placed in the appropriate rotation and the tibia was drilled and punched. Trial components were then placed. I used a size 12 CPS polyethylene insert. The knee was brought through a full range of motion and felt to be stable. The peg holes for the femoral component were then drilled. The patella was then everted and 9 mm was resected off the posterior aspect of the patella. The patella measured to be a size 34 oval. 3 peg holes were then drilled. A trial patella was placed. The knee was once again brought through a full range of motion and felt to be stable. Trial components were then removed. The surrounding soft tissues were injected with 100 cc of an orthopedic pain control cocktail. All components were then cemented into place with Biomet cement. The final polyethylene insert was then snapped into place. Once cement was dry the tourniquet was deflated. Hemostasis was obtained. A dilute betadyne lavage was then done for 3 minutes. The joint was then irrigated with normal saline solution. The midvastus arthrotomy was then closed with #1 Vicryl suture. The skin was closed with 2-0 Vicryl, 3-0V lock suture, and brittany. A soft compressive dressing was placed. He was then transferred to a hospital bed and taken to the postanesthesia care unit in stable condition. He tolerated the procedure well. Panchito Mercado PA-C, was present for the entire procedure. He was critical for patient positioning, prepping, draping, retraction exposure, wound closure and application of sterile dressing. I attest to the content of the Intraoperative Record and any orders documented therein. Any exceptions are noted below.
--- NOTE | 2022-12-10 09:19 | XRay Report ---
TWO VIEWS LEFT KNEE CLINICAL HISTORY: Postoperative examination. FINDINGS: AP and crosstable lateral portable views of the left knee are obtained. A left knee arthrop lasty is in near anatomic alignment. There has been undersurface remodeling of the patella. No acute fracture is seen. There are expected postoperative changes around the knee including skin clips, soft tissue edema, and subcutaneous gas. IMPRESSION: Expected postoperative changes status post left knee arthroplasty. No acute fracture is s een. ACT 112: Negative or not required by law. Electronically signed by: Vu Givens M.D. 12/10/2022 9:18 AM
[2022-12-10] MEDS ORDERED: ePHEDrine sulfate 50 MG/ML SYR ONE (09:57)
--- NOTE | 2022-12-10 10:30 | Anesthesiology Progress Note ---
Date of Service December 10, 2022 Anesthesia Post Procedure Vital Signs Vital Signs: Temp Pulse Pulse Resp BP BP Pulse Ox 12/10/22 10:25 97.7 F 68 17 108/64 94 12/10/22 10:15 66 18 110/72 95 12/10/22 10:05 65 18 115/71 97 12/10/22 09:55 65 14 107/64 96 12/10/22 09:45 66 15 111/66 95 12/10/22 09:35 68 13 102/62 95 12/10/22 09:25 67 14 113/66 94 12/10/22 09:05 67 13 105/61 94 12/10/22 09:15 66 17 95/61 L 94 12/10/22 08:55 71 21 110/63 94 12/10/22 08:47 97.5 F L 72 16 117/63 94 12/10/22 05:41 98.1 F 74 18 135/74 95 O2 Del Method O2 Flow Rate 12/10/22 10:25 Nasal Cannula 2 12/10/22 10:15 Nasal Cannula 2 12/10/22 10:05 Nasal Cannula 2 12/10/22 09:55 Nasal Cannula 2 12/10/22 09:45 Nasal Cannula 2 12/10/22 09:35 Nasal Cannula 2 12/10/22 09:25 Nasal Cannula 2 12/10/22 09:05 Nasal Cannula 2 12/10/22 09:15 Nasal Cannula 2 12/10/22 08:55 Nasal Cannula 2 12/10/22 08:47 Oxymask 4 12/10/22 05:41 Room Air Transfer of Care Handoff Completed per policy Notes Mental Status: alert / awake / arousable and participated in evaluation Patient Amnestic to Procedure: Yes Nausea / Vomiting: adequately controlled Pain: adequately controlled Airway Patency, RR, SpO2: stable & adequate BP & HR: stable & adequate Hydration State: stable & adequate Neuraxial Anesthesia: was administered and sensory block is resolving Anesthetic Complications: no major complications apparent and Pt Satisfied with anesthetic care
[2022-12-10] MEDS ORDERED: bisacodyL 10 MG SUPP PR PRN (10:40)
[2022-12-10] MEDS ORDERED: HYDROmorphone INJ 0.5 MG/0.5 ML SYR IV PRN (10:40)
[2022-12-10] MEDS ORDERED: MAGNESIUM HYDROXIDE SUSP 30 ML UDC PO PRN (10:40)
[2022-12-10] MEDS ORDERED: METOCLOPRAMIDE HCL INJ 5 MG/ML 2 ML VIAL IV PRN (10:40)
[2022-12-10] MEDS ORDERED: NALOXONE HCL 0.4 MG/1 ML VIAL/CARP IV PRN (10:40)
[2022-12-10] MEDS ORDERED: SODIUM CHLORIDE 0.9% 1000ML 1,000 ML IV SCH (10:40)
[2022-12-10] MEDS: KETOROLAC TROMETHAMINE 15 MG/ML VIAL IV SCH ×3 (11:14→21:48)
[2022-12-10] MEDS: ASPIRIN 81 MG ECTAB PO SCH ×2 (11:14→19:57)
[2022-12-10] MEDS: DOCUSATE SODIUM 100 MG CAP PO SCH ×2 (11:14→19:57)
[2022-12-10] MEDS: MULTIVITAMIN TAB PO SCH (11:14)
[2022-12-10] MEDS: ACETAMINOPHEN 500 MG TAB PO SCH ×2 (14:39→21:47)
[2022-12-10] MEDS: ceFAZolin 2000MG 2,000 MG/15 ML SYR IV SCH ×2 (14:40→21:49)
[2022-12-10] MEDS ORDERED: SENNA 8.6 MG TAB PO SCH (21:00)
[2022-12-11] MEDS: KETOROLAC TROMETHAMINE 15 MG/ML VIAL IV SCH ×2 (05:55→11:02)
[2022-12-11] MEDS: ACETAMINOPHEN 500 MG TAB PO SCH (05:56)
--- NOTE | 2022-12-11 06:30 | Orthopedic Progress Note ---
Date of Service December 11, 2022 Assessment & Plan (1) Status post left knee replacement: Overall he is doing very well. Is not having much pain in the left knee. He will be seen by physical therapy today for ambulation and range of motion exercises. The nursing staff can change his dressing after physical therapy. He is on aspirin for DVT prophylaxis. He can be discharged home later today. He will follow-up with orthopedics in 2 weeks. Sahil Flanagan was seen and examined at bedside this morning. Overall is doing very well. He is not having too much pain in the left knee. He has been up and ambulating to the bathroom. He has no complaints.. Review of Systems All systems reviewed & are unremarkable except as noted in HPI & below. Physical Exam On physical examination of the left knee, the dressing is clean and dry. His leg is out full extension. He has active dorsiflexion plantarflexion of his left ankle.. Results & Data Results & Data Laboratory Results . Diagnostic Findings Postoperative x-rays of the left knee show the prosthesis to be in anatomic alignment without any evidence of fracture, dislocation, or loosening.. PG Care Time/CCT Total # of Minutes Spent Total Time Spent with Patient: Total time spent is greater than 50% in coordination of care (as documented) at patient's floor/unit and/or counseling patient: Coding Level of Care Code 12533 Post Operative Follow-Up Diagnoses Status post left knee replacement Z96.652
--- NOTE | 2022-12-11 06:31 | Discharge Summary ---
Date of Service December 11, 2022 Principal Diagnosis Same as "Discharge Diagnosis" noted below under Discharge Instructions. Discharge Exam On physical examination of the left knee, the dressing is clean and dry. His leg is out full extension. He has active dorsiflexion plantarflexion of his left ankle.. Discharge Data Procedures Performed Operation Date: 12/10/22 07:00 Actual Procedures p Left Total Knee Arthroplasty(Left) - Panchito A DO Jones Ordered Studies 12/10/22 05:00 US - OR guided needle placemen Routine Hospital Course (1) Status post left knee replacement: On December 10, 2022 Panchito arrived at [facility] and underwent a left knee replacement without complication. He had a spinal anesthetic. Postoperatively he was started on aspirin for DVT prophylaxis and transferred to the general orthopedic floors. His hospital course was uneventful. On postop day #1, his vital signs were stable and his pain was well controlled. He was able to participate well with physical therapy doing ambulation and range of motion exercises. He was then discharged home. He will follow-up with orthopedics in 2 weeks. PG Care Time/CCT Total # of Minutes Spent Total Time Spent with Patient: Total time spent is greater than 50% in coordination of care (as documented) at patient's floor/unit and/or counseling patient: Discharge Plan Discharge Items Patient Disposition: Home - Home Health Services Reason For Visit: Left Knee Degenerative Joint Disease Discharge Diagnosis: Left knee replacement Activity: Per Instructions section Non-emergency contact: Surgeon Call non-emergency contact if: your wound has increased redness and your wound has increased drainage Follow-up/Referrals: Lizzeth Conklin MD [Primary Care Provider] - Diet: Regular Addtl Attending Provider Instructions: Activity and Therapy Recommendations: * If you are using [facility] then therapy will be provided at your home until they feel you have accomplished all of your goals. * If you are using [facility] then Physical Therapy will be provided until they feel you are ready to start Outpatient Physical Therapy. * If you are not using home therapy then Outpatient Physical Therapy should start about 3-5 days from your day of surgery. Therapy will last about 6-10 weeks * It is important not to put a pillow under your knee when you are relaxing or sleeping. It is just as important to make sure you are getting your knee perfectly straight as it is to regain your knee bend. * You were shown a series of exercises in the hospital. Do these exercises three times each day including the exercises you were shown in physical therapy. * Get up and walk several times each day. For the first four weeks, try not to stand or walk for more than one hour at a time. If you do stand or walk for more than one hour, you will not hurt anything, but your leg will likely swell. * As you feel comfortable, you may change from the walker or crutches to a cane and then to independent walking. Medications: * Narcotic You will likely be sent home from the hospital with a prescription for the narcotic pain medication that worked best throughout your stay. * Aspirin Most patients will be required to take Aspirin 81mg twice a day for 6 weeks after surgery. This is obtained [id number] and a prescription is not necessary. * Other medications may be prescribed for specific circumstances. If you have any questions, please call the office at . * Resume previous home medications unless otherwise instructed TEDs/Elastic Stockings: The white elastic stockings help limit swelling and prevent blood clots from forming in your legs.~ The more you wear them, the more they work. Wear them for six weeks. Dressing Care: The dressing can be changed after physical therapy on postop day #1. Daily dry dressing changes for a few days, especially if the incision is still draining some. If the incision is not draining then you may leave the brittany open to air. If there is a little bit of drainage or if the brittany are getting stuck on your clothing then cover the incision with a dry dressing. The brittany will be removed at your 2 week follow-up appointment. Showering: You may shower 5 days from the day of surgery as long as the incision is no longer draining. You may shower with the brittany exposed. Let soapy water run over the brittany and pat them dry. Do not scrub or soak the incision. Things To Watch For: * Drainage from the incision site that occurs more than one week after your surgery. * Increased redness at the incision site. * Fever above 102 degrees Fahrenheit. * Unusual chest pain or shortness of breath. * Call [facility] at with any of the above problems Follow-Up Visit: Follow-up with Dr. Goldman's PA (Panchito Mercado) 2-3 weeks after your day of surgery. He will remove your brittany and answer any questions. If you have any additional questions or concerns, Dr Goldman is usually in the office at the same time and will be available An appointment was probably scheduled when you signed-up for surgery in the office. If you have any questions call Office Instructions: More detailed instructions as well as Frequently Asked Questions were provided in a folder by our office when you signed-up for surgery. Please review these instructions when you get home. If you have any further questions or concerns, please feel free to call the office at [phone] Pending Studies at Discharge: No Stand-Alone Forms: My [employer], Smoking Cessation Medications and DC Order Prescriptions: New aspirin 81 mg Tablet,Delayed Release (Dr/Ec) 81 mg PO BID 42 Days Qty: 84 0RF oxycodone 5 mg Tablet 5 mg PO Q4H PRN (Reason: pain) Qty: 30 0RF Continued ascorbate calcium (vitamin C) 500 mg tablet 500 mg PO DAILY [id number] serr [Osteo Bi-Flex (5-Loxin)] 1,500-400-100 mg-unit-mg tablet 2 tab PO QAM omega 7-bim-lgw-fish oil [Fish Oil] 300-1,000 mg capsule 1 cap PO DAILY Rx Instructions: PER PT "RUN OUT WILL START SOON GET SOME". (DME) CPAP Machine Misc See Rx Instructions .ROUTE .MEDSUPPLY Qty: 1 0RF Rx Instructions: AUTO CPAP MIN 6 MAX 20. HEATED HUMIDITY. CPAP SUPPLIES. MASK OF CHOICE. EKATERINA 99. CARE PLUS O2 celecoxib [Celebrex] 200 mg capsule 200 mg PO BID PRN (Reason: pain) Qty: 60 0RF ibuprofen 200 mg Tablet 600 mg PO Q6H PRN (Reason: Pain) cholecalciferol (vitamin D3) [Vitamin D3] 50 mcg (2,000 unit) Capsule 20,000 mcg PO WK diclofenac sodium [Arthritis Pain (diclofenac)] 1 % gel 4 g topical QID PRN (Reason: Pain) multivitamin Tablet 1 tab PO QAM Admission Data Admit Date/Time: 12/10/22 08:50 Attending Provider: Panchito Goldman Admit Provider: Panchito Goldman Primary Care Provider: Lizzeth Conklin
[2022-12-11] MEDS ORDERED: dexAMETHasone 4 MG TAB PO SCH (08:00)
[2022-12-11] MEDS: oxyCODONE HCL IR 5 MG TAB (IMMEDIATE RELEASE) PO PRN ×2 (08:10→12:12)
[2022-12-11] MEDS: ASPIRIN 81 MG ECTAB PO SCH (09:10)
[2022-12-11] MEDS: MULTIVITAMIN TAB PO SCH (09:10)
[2022-12-11] MEDS: DOCUSATE SODIUM 100 MG CAP PO SCH (09:10)
== END 2022-12-11 13:00 | disposition home health service (06) ==
LOC: ASU 05:05 → 3E 05:05